=== PATIENT | female | born 1995 | race Caucasian/White ===

== ENCOUNTER 2017-11-27 16:44 | Observation (INO) | payer SELFPAY ==
[2017-11-27] MEDS ORDERED: Lactated Ringers 1,000 ML IV SCH (17:15)
== END 2017-11-27 19:10 | disposition home or self-care (01) ==
LOC: MW.OBCHECK 16:44 → MW.OB 16:55 → MW.OBCHECK 17:08 → MW.OB 17:09
PROVIDERS: ADMIT Obstetrics & Gynecology; ATTEND Obstetrics & Gynecology
DX: O21.0 Mild hyperemesis gravidarum (principal); Z3A.36 36 weeks gestation of pregnancy
CPT/HCPCS: 59025; 96360; G0378; J7120

== ENCOUNTER 2017-12-10 05:05 | Inpatient (IN) | payer BC ==
[2017-12-10] MEDS ORDERED: Butorphanol 1 MG/ML SDV IVPUSH PRN (15:02)
[2017-12-10] MEDS ORDERED: Nalbuphine 10 MG/1 ML Vial IVPUSH PRN (15:02)
[2017-12-10] MEDS ORDERED: Lidocaine 1% 50 ML MDV INJECT PRN (15:02)
[2017-12-10] MEDS ORDERED: Sodium Chloride 0.9% 2.5 ML Syringe FLUSH PRN (15:02)
[2017-12-10] MEDS ORDERED: Misoprostol 200 MCG Tab PO PRN (15:02)
[2017-12-10] MEDS ORDERED: Carboprost Tromethamine 250 MCG/1 ML Amp IM PRN (15:02)
[2017-12-10] MEDS ORDERED: Sodium Chloride 0.9% 10 ML Syringe FLUSH PRN (15:02)
[2017-12-10] MEDS ORDERED: Water For Irrigation,Sterile 1,000 ML Container IRR PRN (15:02)
[2017-12-10] MEDS ORDERED: Methylergonovine 0.2 MG/1 ML Amp IM PRN (15:02)
[2017-12-10] MEDS ORDERED: Tranexamic Acid 1,000 MG in Sodium Chloride 0.9% 100 ML IV PRN (15:02)
[2017-12-10] MEDS ORDERED: Terbutaline 1 MG/ML SDV SUBCUT PRN (15:02)
[2017-12-10] MEDS ORDERED: Lactated Ringers 1,000 ML IV SCH (15:15)
[2017-12-10] MEDS ORDERED: Ampicillin 2 GM in Sodium Chloride 0.9% 100 ML IV ONE (15:15)
[2017-12-10] MEDS ORDERED: Oxytocin/0.9 % Sodium Chloride 30 UNIT/500 ML BAG IV SCH ×2 (15:15→20:15)
--- NOTE | 2017-12-10 17:41 | PCM.LDHP ---
L&D History of Present Illness - General Date of Service: 12/10/17 Admit Problem/Dx: Patient Status Order with Admit Dx/Problem 12/10/17 15:02 Patient Status [ADT] Routine Admission Diagnosis/Problem Admission Diagnosis/Problem - planned 12/10/17 17:36 22yo EDC 12/22/2017 38 2/7, O+, R-NI, GBS pos. 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 OBGYN: Reports: Endocrine/Metabolic: Reports: Diabetes, type II - Tobacco Use Smoking Status *Q: Never Smoker Second Hand Smoke Exposure: No - Caffeine Use Caffeine Use: Reports: None - Recreational Drug Use Recreational Drug Use: No H&P Review of Systems - Review of Systems: Review Of Systems: See Below General: Reports: No Symptoms HEENT: Reports: No Symptoms Pulmonary: Reports: No Symptoms Cardiovascular: Reports: No Symptoms Gastrointestinal: Reports: No Symptoms Genitourinary: Reports: No Symptoms Musculoskeletal: Reports: No Symptoms Skin: Reports: No Symptoms Psychiatric: Reports: No Symptoms Neurological: Reports: No Symptoms Hematologic/Lymphatic: Reports: No Symptoms Immunologic: Reports: No Symptoms L&D Exam - Exam Exam: See Below - Vital Signs Weight: 56.245 kg - OB Specific Contraction Intensity: Mild Movement: Active Heart Tones: Present Heart Tones per Min: 135 Heart Rate (FHR) Variability: Moderate (6-25 bmp) Presentation: Vertex (Hand noted near head. Limited handheld u/s noted cephalic presentation) - Fairchild Score Fairchild Score Cervix Position: Midposition Fairchild Score Consistency: Soft Fairchild Score Effacement: >80% Fairchild Score Dilation: 3-4 cm Fairchild Score Infant's Station: -2 Fairchild Score Total: 9 - Exam General: Alert, Oriented, Cooperative HEENT: Hearing Intact Lungs: Normal Respiratory Effort GI/Abdominal Exam: Soft, Non-Tender Rectal Exam: Deferred Genitourinary: Normal external exam, Normal bimanual exam, Cervical fluid Back Exam: Full Range of Motion Extremities: Normal Range of Motion, Non-Tender, No Pedal Edema, Normal Capillary Refill Skin: Warm, Dry, Intact Neurological: Reflexes Equal Bilateral, Normal Gait, Normal Speech, Normal Tone Psychiatric: Alert, Normal Affect, Normal Mood - Patient Data Lab Results Last 24 hrs: Laboratory Results - last 24 hr 12/10/17 12/10/17 Range/Units 15:25 15:25 WBC 9.25 (4.0-11.0) K/uL RBC 4.40 (4.30-5.90) M/uL Hgb 12.5 (12.0-16.0) g/dL Hct 37.9 (36.0-46.0) % MCV 86.1 (80.0-98.0) fL MCH 28.4 (27.0-32.0) pg MCHC 33.0 (31.0-37.0) g/dL RDW Std Deviation 44.4 (28.0-62.0) fl RDW Coeff of Yadira 14 (11.0-15.0) % Plt Count 144 L (150-400) K/uL MPV 12.00 (7.40-12.00) fL Nucleated RBC % 0.0 /100WBC Nucleated RBCs # 0 K/uL Blood Type O POSITIVE Antibody Screen NEGATIVE Result Diagrams: 12/10/17 15:25 - Problem List (1) Supervision of normal IUP (intrauterine ) in multigravida SNOMED Code(s): 184709983, 114996852 ICD Code: Z34.80 - ENCOUNTER FOR SUPRVSN OF NORMAL , UNSP TRIMESTER Status: Acute Priority: High Current Visit: Yes Qualifiers: Trimester: third trimester Qualified Code(s): Z34.83 - Encounter for supervision of other normal , third trimester (2) SROM (spontaneous rupture of membranes) SNOMED Code(s): 507805470 ICD Code: NLK4354 - Status: Acute Priority: High Current Visit: Yes Problem List Initiated/Reviewed/Updated: Yes Orders Last 24hrs: Active Orders 24 hr Category Date Time Status Patient Status [ADT] Routine ADT 12/10/17 15:02 Active Bedrest Bathroom Privileges [RC] ASDIRECTED Care 12/10/17 15:02 Active Communication Order [RC] ASDIRECTED Care 12/10/17 15:02 Active May Shower [RC] ASDIRECTED Care 12/10/17 15:02 Active Notify Provider [RC] PRN Care 12/10/17 15:02 Active Oxygen Therapy [RC] ASDIRECTED Care 12/10/17 15:02 Active Up ad Suzanne [RC] ASDIRECTED Care 12/10/17 15:02 Active Vital Signs [RC] PER UNIT ROUTINE Care 12/10/17 15:02 Active Ampicillin 1 gm Med 12/10/17 19:30 Active Sodium Chloride 0.9% [Normal Saline] 50 ml IV Q4H Butorphanol [Stadol] Med 12/10/17 15:02 Active 1 mg IVPUSH Q1H PRN Carboprost Tromethamine [Hemabate DS] Med 12/10/17 15:02 Active 250 mcg IM ASDIRECTED PRN Lactated Ringers [Ringers, Lactated] 1,000 ml Med 12/10/17 15:15 Active IV ASDIRECTED Lidocaine 1% [Xylocaine 1%] Med 12/10/17 15:02 Active 50 ml INJECT .ONCE PRN Methylergonovine [Methergine] Med 12/10/17 15:02 Active 0.2 mg IM ASDIRECTED PRN Misoprostol [Cytotec] Med 12/10/17 15:02 Active 200 mcg PO .ONCE PRN Nalbuphine [Nubain] Med 12/10/17 15:02 Active 10 mg IVPUSH Q1H PRN Oxytocin/0.9 % Sodium Chloride [Oxytocin 30 Unit/500 ML Med 12/10/17 15:15 Active -NS] 30 unit in 500 ml IV TITRATE Sodium Chloride 0.9% [Saline Flush] Med 12/10/17 15:02 Active 10 ml FLUSH ASDIRECTED PRN Sodium Chloride 0.9% [Saline Flush] Med 12/10/17 15:02 Active 2.5 ml FLUSH ASDIRECTED PRN Terbutaline [Brethine] Med 12/10/17 15:02 Active 0.25 mg SUBCUT ASDIRECTED PRN Tranexamic Acid [Cyklokapron] 1,000 mg Med 12/10/17 15:02 Active Sodium Chloride 0.9% [Normal Saline] 100 ml IV ONETIME Water For Irrigation,Sterile [Sterile Water for Med 12/10/17 15:02 Active Irrigation] 1,000 ml IRR ASDIRECTED PRN Scalp Electrode [WOMSER] Per Unit Routine Oth 12/10/17 15:02 Ordered Peripheral IV Insertion Adult [OM.PC] Routine Oth 12/10/17 15:02 Ordered Resuscitation Status Routine Resus Stat 12/10/17 15:02 Ordered Medication Orders Butorphanol Tartrate (Stadol) 1 mg IVPUSH Q1H PRN PRN Reason: Pain Carboprost Tromethamine (Hemabate Ds) 250 mcg IM ASDIRECTED PRN PRN Reason: Post Hemorrhage Ampicillin Sodium 1 gm/ Sodium (Chloride) 50 mls @ 100 mls/hr IV Q4H VERNON Lactated Ringer's (Ringers, Lactated) 1,000 mls @ 150 mls/hr IV ASDIRECTED VERNON Last Admin: 12/10/17 15:41 Dose: 150 mls/hr Oxytocin/Sodium Chloride (Oxytocin 30 Unit/500 Ml-Ns) 30 unit in 500 mls @ 999 mls/hr IV TITRATE VERNON Tranexamic Acid 1,000 mg/ (Sodium Chloride) 110 mls @ 600 mls/hr IV ONETIME PRN PRN Reason: Bleeding Lidocaine HCl (Xylocaine 1%) 50 ml INJECT .ONCE PRN PRN Reason: Laceration repair Methylergonovine Maleate (Methergine) 0.2 mg IM ASDIRECTED PRN PRN Reason: Post Hemorrhage Misoprostol (Cytotec) 200 mcg PO .ONCE PRN PRN Reason: Post Hemorrhage Nalbuphine HCl (Nubain) 10 mg IVPUSH Q1H PRN PRN Reason: Pain (severe 7-10) Sodium Chloride (Saline Flush) 10 ml FLUSH ASDIRECTED PRN PRN Reason: Keep Vein Open Sodium Chloride (Saline Flush) 2.5 ml FLUSH ASDIRECTED PRN PRN Reason: Keep Vein Open Sterile Water (Sterile Water For Irrigation) 1,000 ml IRR ASDIRECTED PRN PRN Reason: delivery Terbutaline Sulfate (Brethine) 0.25 mg SUBCUT ASDIRECTED PRN PRN Reason: Tacysystole Assessment/Plan Comment:: Early labor A: 22yo EDC 12/22/2017 38 2, O+, R-NI, GBS pos. SROM at 0500 today P: Admit, epidural prn, Amp for GBS pos, anticipate . Dr Tucker updated on pt status
[2017-12-10] MEDS: Ampicillin 1 GM in Sodium Chloride 0.9% 50 ML IV SCH ×2 (19:49→23:29)
[2017-12-10] MEDS ORDERED: Ropivacaine 0.2% 2 MG/ML 20 ML SDV ONE (23:53)
--- NOTE | 2017-12-11 00:24 | PCM.PREANE ---
Preanesthetic Assessment - Anesthesia/Transfusion/Family Hx Anesthesia History: No Prior Anesthesia Transfusion History: No Prior Transfusion(s) - Review of Systems Other: Reports: None - Physical Assessment Height: 5 ft 1 in Weight: 56.245 kg ASA Class: 2 Airway Class: Mallampati = 1 Dentition: Reports: Normal Dentition Thyro-Mental Finger Breadths: 3 Mouth Opening Finger Breadths: 3 ROM/Head Extension: Full - Lab Values: Laboratory Last Values WBC 9.25 K/uL (4.0-11.0) 12/10/17 15:25 RBC 4.40 M/uL (4.30-5.90) 12/10/17 15:25 Hgb 12.5 g/dL (12.0-16.0) 12/10/17 15:25 Hct 37.9 % (36.0-46.0) 12/10/17 15:25 MCV 86.1 fL (80.0-98.0) 12/10/17 15:25 MCH 28.4 pg (27.0-32.0) 12/10/17 15:25 MCHC 33.0 g/dL (31.0-37.0) 12/10/17 15:25 RDW Std Deviation 44.4 fl (28.0-62.0) 12/10/17 15:25 RDW Coeff of Yadira 14 % (11.0-15.0) 12/10/17 15:25 Plt Count 144 K/uL (150-400) L 12/10/17 15: MPV 12.00 fL (7.40-12.00) 12/10/17 15:25 Nucleated RBC % 0.0 /100WBC 12/10/17 15:25 Nucleated RBCs # 0 K/uL 12/10/17 15:25 Blood Type O POSITIVE 12/10/17 15:25 Antibody Screen NEGATIVE 12/10/17 15:25 - Allergies Allergies/Adverse Reactions: Allergies Allergy/AdvReac Type Severity Reaction Status Date / Time No Known Allergies Allergy Verified 11/27/17 17:07 - Blood Blood Available: Yes Product(s) Available: PRBC - Acknowledgements Anesthesia Type Planned: Epidural Pt an Appropriate Candidate for the Planned Anesthesia: Yes Alternatives and Risks of Anesthesia Discussed w Pt/Guardian: Yes Pt/Guardian Understands and Agrees with Anesthesia Plan: Yes PreAnesthesia Questionnaire Gastrointestinal History: Reports: GERD 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: Neurological History: Reports: Migraines - Infectious Disease History Infectious Disease History: Reports: Chicken Pox - SUBSTANCE USE Smoking Status *Q: Never Smoker Tobacco Use Within Last Twelve Months: No Second Hand Smoke Exposure: No Recreational Drug Use History: No - CURRENT (IN HOUSE) MEDS Current Meds: Current Medications Butorphanol Tartrate (Stadol) 1 mg IVPUSH Q1H PRN PRN Reason: Pain Carboprost Tromethamine (Hemabate Ds) 250 mcg IM ASDIRECTED PRN PRN Reason: Post Hemorrhage Ampicillin Sodium 1 gm/ Sodium (Chloride) 50 mls @ 100 mls/hr IV Q4H VERNON Last Admin: 12/10/17 23:29 Dose: 100 mls/hr Lactated Ringer's (Ringers, Lactated) 1,000 mls @ 150 mls/hr IV ASDIRECTED VERNON Last Admin: 12/10/17 15:41 Dose: 150 mls/hr Oxytocin/Sodium Chloride (Oxytocin 30 Unit/500 Ml-Ns) 30 unit in 500 mls @ 999 mls/hr IV TITRATE VERNON Tranexamic Acid 1,000 mg/ (Sodium Chloride) 110 mls @ 600 mls/hr IV ONETIME PRN PRN Reason: Bleeding Oxytocin/Sodium Chloride (Oxytocin 30 Unit/500 Ml-Ns) 30 unit in 500 mls @ 2 mls/hr IV TITRATE VERNON; 2 MUNITS/MIN PRN Reason: Protocol Lidocaine HCl (Xylocaine 1%) 50 ml INJECT .ONCE PRN PRN Reason: Laceration repair Methylergonovine Maleate (Methergine) 0.2 mg IM ASDIRECTED PRN PRN Reason: Post Hemorrhage Misoprostol (Cytotec) 200 mcg PO .ONCE PRN PRN Reason: Post Hemorrhage Nalbuphine HCl (Nubain) 10 mg IVPUSH Q1H PRN PRN Reason: Pain (severe 7-10) Sodium Chloride (Saline Flush) 10 ml FLUSH ASDIRECTED PRN PRN Reason: Keep Vein Open Sodium Chloride (Saline Flush) 2.5 ml FLUSH ASDIRECTED PRN PRN Reason: Keep Vein Open Sterile Water (Sterile Water For Irrigation) 1,000 ml IRR ASDIRECTED PRN PRN Reason: delivery Terbutaline Sulfate (Brethine) 0.25 mg SUBCUT ASDIRECTED PRN PRN Reason: Tacysystole Discontinued Medications Ampicillin Sodium 2 gm/ Sodium (Chloride) 100 mls @ 200 mls/hr IV ONETIME ONE Stop: 12/10/17 15:44 Last Admin: 12/10/17 15:43 Dose: 200 mls/hr Fentanyl/Bupivacaine HCl (Qwrastsz-Kingi-Qf 2 Mcg/Ml-0.125%) Confirm Administered Dose 100 mls @ as directed EP .STK-MED ONE Stop: 12/10/17 23:54 Ropivacaine (Naropin 0.2%) Confirm Administered Dose 20 ml .ROUTE .STK-MED ONE Stop: 12/10/17 23:54
[2017-12-11] MEDS: Ampicillin 1 GM in Sodium Chloride 0.9% 50 ML IV SCH (03:29)
[2017-12-11] MEDS ORDERED: Bisacodyl 10 MG Supp RECTAL PRN (05:21)
[2017-12-11] MEDS ORDERED: oxyCODONE 5 MG Tab PO PRN (05:21)
[2017-12-11] MEDS ORDERED: Ibuprofen 400 MG Tab PO PRN (05:21)
[2017-12-11] MEDS ORDERED: Acetaminophen 500 MG Tab PO PRN ×2 (05:21)
[2017-12-11] MEDS ORDERED: Ibuprofen 800 MG Tab PO PRN (05:21)
[2017-12-11] MEDS ORDERED: Docusate Sodium 100 MG Cap PO PRN (05:21)
[2017-12-11] MEDS ORDERED: Lanolin 100% Cream 7 GM Tube TOP PRN (05:21)
--- NOTE | 2017-12-11 05:29 | PCM.DEL ---
L & D Note - General Info Date of Service: 12/11/17 Mother's Due Date: 12/22/17 - Delivery Note Labor: Spontaneous, Augmented by Oxytocin Delivery Outcome: Livebirth Infant Delivery Method: Spontaneous Vaginal Delivery-Single Infant Delivery Mode: Spontaneous Presentation: Vertex (Hand noted near head. Limited handheld u/s noted cephalic presentation) Nuchal Cord: Present Anesthesia Type: Epidural Amniotic Fluid Description: Clear Episiotomy Type: None Laceration: None Placenta: Intact, Spontaneous Cord: 3 Vessels Estimated Blood Loss: 150 Resuscitation Needed: No Score 1 min: 8 Score 5 min: 8 Second Stage Interventions: Reports: Pushing Effectively, Pushing, Pulls Own Legs Back Delivery Comments (Free Text/Narrative):: of viable male over intact perineum. Head delivered and nuchal x1 reduced over head. Shoulders and body followed easily. Infant to mothers abdomen with RN at for evaluation. Spont cry. Delayed cord clamping. Pitocin to IVF. Cord clamped and cut by FOB. Cord blood collected. Placenta delivered grossly intact. Inspection noted intact perineum. APGARS 8/8, Wt: 7lb 2oz, EBL 150cc. Mother and baby left in stable condition for recovery bonding well. Induction Criteria - Augmentation Estimated Pelvis: Reports: Adequate Weight Estimated:: Reports: AGA Reassuring Monitoring Strip: Yes Absence of Tachy Systole: Yes - General Info Date of Service: 12/11/17 Admission Dx/Problem (Free Text): Patient Status Order with Admit Dx/Problem 12/10/17 15:02 Patient Status [ADT] Routine Admission Diagnosis/Problem Admission Diagnosis/Problem - planned 12/10/17 17:36 22yo EDC 12/22/2017 38 2/7, O+, R-NI, GBS pos. SROM at 0500 today Functional Status: Reports: Pain Controlled - Review of Systems General: Reports: No Symptoms HEENT: Reports: No Symptoms Pulmonary: Reports: No Symptoms Cardiovascular: Reports: No Symptoms Gastrointestinal: Reports: No Symptoms Genitourinary: Reports: No Symptoms Musculoskeletal: Reports: No Symptoms Skin: Reports: No Symptoms Neurological: Reports: No Symptoms Psychiatric: Reports: No Symptoms - Patient Data Weight - Most Recent: 56.245 kg Lab Results Last 24 Hours: Laboratory Results - last 24 hr 12/10/17 12/10/17 Range/Units 15:25 15:25 WBC 9.25 (4.0-11.0) K/uL RBC 4.40 (4.30-5.90) M/uL Hgb 12.5 (12.0-16.0) g/dL Hct 37.9 (36.0-46.0) % MCV 86.1 (80.0-98.0) fL MCH 28.4 (27.0-32.0) pg MCHC 33.0 (31.0-37.0) g/dL RDW Std Deviation 44.4 (28.0-62.0) fl RDW Coeff of Yadira 14 (11.0-15.0) % Plt Count 144 L (150-400) K/uL MPV 12.00 (7.40-12.00) fL Nucleated RBC % 0.0 /100WBC Nucleated RBCs # 0 K/uL Blood Type O POSITIVE Antibody Screen NEGATIVE Med Orders - Current: Current Medications Acetaminophen (Tylenol Extra Strength) 500 mg PO Q4H PRN PRN Reason: Pain Acetaminophen (Tylenol Extra Strength) 1,000 mg PO Q4H PRN PRN Reason: Pain Benzocaine/Menthol (Dermoplast Pain Relief 20%-0.5% [place]) 78 gm TOP ASDIRECTED PRN PRN Reason: Perineal Comfort Measure Bisacodyl (Dulcolax) 10 mg RECTAL .ONCE PRN PRN Reason: Constipation Docusate Sodium (Colace) 100 mg PO BID PRN PRN Reason: Constipation Emollient Ointment (Lansinoh Hpa) 0 gm TOP ASDIRECTED PRN PRN Reason: Sore Nipples Ibuprofen (Motrin) 400 mg PO Q4H PRN PRN Reason: Pain Ibuprofen (Motrin) 800 mg PO Q6H PRN PRN Reason: Pain Oxycodone HCl (Oxycodone) 5 mg PO Q2H PRN PRN Reason: Pain Witch Nettie (Tucks) 1 pad TOP ASDIRECTED PRN PRN Reason: comfort care Discontinued Medications Butorphanol Tartrate (Stadol) 1 mg IVPUSH Q1H PRN PRN Reason: Pain Carboprost Tromethamine (Hemabate Ds) 250 mcg IM ASDIRECTED PRN PRN Reason: Post Hemorrhage Ampicillin Sodium 2 gm/ Sodium (Chloride) 100 mls @ 200 mls/hr IV ONETIME ONE Stop: 12/10/17 15:44 Last Admin: 12/10/17 15:43 Dose: 200 mls/hr Ampicillin Sodium 1 gm/ Sodium (Chloride) 50 mls @ 100 mls/hr IV Q4H EVRNON Last Admin: 12/11/17 03:29 Dose: 100 mls/hr Lactated Ringer's (Ringers, Lactated) 1,000 mls @ 150 mls/hr IV ASDIRECTED VERNON Last Admin: 12/10/17 15:41 Dose: 150 mls/hr Oxytocin/Sodium Chloride (Oxytocin 30 Unit/500 Ml-Ns) 30 unit in 500 mls @ 999 mls/hr IV TITRATE VERNON Tranexamic Acid 1,000 mg/ (Sodium Chloride) 110 mls @ 600 mls/hr IV ONETIME PRN PRN Reason: Bleeding Oxytocin/Sodium Chloride (Oxytocin 30 Unit/500 Ml-Ns) 30 unit in 500 mls @ 2 mls/hr IV TITRATE VERNON; 2 MUNITS/MIN PRN Reason: Protocol Fentanyl/Bupivacaine HCl (Whmoyhif-Vttkc-Te 2 Mcg/Ml-0.125%) Confirm Administered Dose 100 mls @ as directed EP .STK-MED ONE Stop: 12/10/17 23:54 Lidocaine HCl (Xylocaine 1%) 50 ml INJECT .ONCE PRN PRN Reason: Laceration repair Methylergonovine Maleate (Methergine) 0.2 mg IM ASDIRECTED PRN PRN Reason: Post Hemorrhage Misoprostol (Cytotec) 200 mcg PO .ONCE PRN PRN Reason: Post Hemorrhage Nalbuphine HCl (Nubain) 10 mg IVPUSH Q1H PRN PRN Reason: Pain (severe 7-10) Ropivacaine (Naropin 0.2%) Confirm Administered Dose 20 ml .ROUTE .STK-MED ONE Stop: 12/10/17 23:54 Sodium Chloride (Saline Flush) 10 ml FLUSH ASDIRECTED PRN PRN Reason: Keep Vein Open Sodium Chloride (Saline Flush) 2.5 ml FLUSH ASDIRECTED PRN PRN Reason: Keep Vein Open Sterile Water (Sterile Water For Irrigation) 1,000 ml IRR ASDIRECTED PRN PRN Reason: delivery Terbutaline Sulfate (Brethine) 0.25 mg SUBCUT ASDIRECTED PRN PRN Reason: Tacysystole - Exam General: Alert, Oriented, Cooperative, No Acute Distress Lungs: Normal Respiratory Effort GI/Abdominal Exam: Soft, Non-Tender (Female) Exam: Normal External Exam, Normal Bimanual Exam, Vaginal Bleeding Back Exam: Full Range of Motion Extremities: Normal Range of Motion, Non-Tender, No Pedal Edema, Normal Capillary Refill Skin: Warm, Dry, Intact Wound/Incisions: Healing Well Neurological: No New Focal Deficit, Normal Speech, Normal Tone Psy/Mental Status: Alert, Normal Affect, Normal Mood - Problem List & Annotations (1) Supervision of normal IUP (intrauterine ) in multigravida SNOMED Code(s): 014167766, 189086988 Code(s): Z34.80 - ENCOUNTER FOR SUPRVSN OF NORMAL , UNSP TRIMESTER Status: Acute Priority: High Current Visit: Yes Qualifiers: Trimester: third trimester Qualified Code(s): Z34.83 - Encounter for supervision of other normal , third trimester (2) SROM (spontaneous rupture of membranes) SNOMED Code(s): 772001658 Code(s): PDO4993 - Status: Acute Priority: High Current Visit: Yes (3) (normal spontaneous vaginal delivery) SNOMED Code(s): 03210910 Code(s): O80 - ENCOUNTER FOR FULL-TERM UNCOMPLICATED DELIVERY Status: Acute Priority: High Current Visit: Yes - Problem List Review Problem List Initiated/Reviewed/Updated: Yes - My Orders Last 24 Hours: My Active Orders 12/10/17 15:02 Bedrest Bathroom Privileges [RC] ASDIRECTED Communication Order [RC] ASDIRECTED May Shower [RC] ASDIRECTED Notify Provider [RC] PRN Oxygen Therapy [RC] ASDIRECTED Up ad Suzanne [RC] ASDIRECTED Vital Signs [RC] PER UNIT ROUTINE 12/11/17 05:21 May Shower [RC] ASDIRECTED Up ad Suzanne [RC] ASDIRECTED Vital Signs [RC] PER UNIT ROUTINE Acetaminophen [Tylenol Extra Strength] 1,000 mg PO Q4H PRN Acetaminophen [Tylenol Extra Strength] 500 mg PO Q4H PRN Benzocaine/Menthol [Dermoplast Pain Relief 20%-0.5% [place]] 78 gm TOP ASDIRECTED PRN Bisacodyl [Dulcolax] 10 mg RECTAL .ONCE PRN Docusate Sodium [Colace] 100 mg PO BID PRN Ibuprofen [Motrin] 400 mg PO Q4H PRN Ibuprofen [Motrin] 800 mg PO Q6H PRN Lanolin [Lansinoh HPA] See Dose Instructions TOP ASDIRECTED PRN Witch Nettie [Tucks] 1 pad TOP ASDIRECTED PRN oxyCODONE 5 mg PO Q2H PRN Assess Lochia [WOMSER] Per Unit Routine Assess Uterine Involution [WOMSER] Per Unit Routine Peripheral IV Discontinue [OM.PC] Routine Resuscitation Status Routine 12/11/17 05:22 Patient Status [ADT] Routine 12/11/17 Breakfast Regular Diet [DIET] - Plan Plan:: Early labor A: 22yo EDC 12/22/2017 38 2/7, O+, R-NI, GBS pos. SROM at 0500 today P: Admit, epidural prn, Amp for GBS pos, anticipate . Dr Tucker updated on pt status Delivery A: of viable male, APGARS 8/8, WT: 7lb 2oz, EBL 150cc, Intact, Mother and baby stable bonding well, P: Routing pp plan of care
[2017-12-11] MEDS ORDERED: Measles, Mumps & Rubella Vaccine 0.5 ML SDV SUBCUT ONE (05:32)
--- NOTE | 2017-12-11 07:59 | PCM48HPAN ---
Post Anesthesia Note - EVALUATION WITHIN 48HRS OF ANESTHETIC Vital Signs in Normal Range: Yes Patient Participated in Evaluation: Yes Respiratory Function Stable: Yes Airway Patent: Yes Cardiovascular Function Stable: Yes Hydration Status Stable: Yes Pain Control Satisfactory: Yes Nausea and Vomiting Control Satisfactory: Yes Mental Status Recovered: Yes
[2017-12-11] MEDS: Benzocaine/Menthol 20%-0.5% Spray 78 GM Cannister TOP PRN ×2 (11:50→22:37)
[2017-12-11] MEDS: Witch Hazel Medicated Pads 40/Jar TOP PRN ×2 (11:50→22:37)
--- NOTE | 2017-12-12 08:46 | PCM.DCSUM1 ---
Discharge Summary - Hospital Course Free Text/Narrative:: Discharge home with . Follow up 6 weeks for post or sooner if needed. - Discharge Data Discharge Date: 12/12/17 Discharge Disposition: Home, Self-Care 01 Condition: Good - Discharge Diagnosis/Problem(s) (1) Supervision of normal IUP (intrauterine ) in multigravida SNOMED Code(s): 198021996, 504951292 ICD Code: Z34.80 - ENCOUNTER FOR SUPRVSN OF NORMAL , UNSP TRIMESTER Status: Acute Priority: High Current Visit: Yes Qualifiers: Trimester: third trimester Qualified Code(s): Z34.83 - Encounter for supervision of other normal , third trimester (2) SROM (spontaneous rupture of membranes) SNOMED Code(s): 666819183 ICD Code: XYX7379 - Status: Acute Priority: High Current Visit: Yes (3) (normal spontaneous vaginal delivery) SNOMED Code(s): 04168651 ICD Code: O80 - ENCOUNTER FOR FULL-TERM UNCOMPLICATED DELIVERY Status: Acute Priority: High Current Visit: Yes - Patient Instructions Diet: Usual Diet as Tolerated Activity: As Tolerated, No Strenuous Activities, Rest and Relax Today Driving: May Drive Today Showering/Bathing: May Shower Notify Provider of: Fever, Increased Pain, Nausea and/or Vomiting - Discharge Plan Referrals: [facility] [Outside] Ignacia Mistry CNM [Primary Care Provider] - 01/22/18 10:45 am - General Info Date of Service: 12/12/17 Admission Dx/Problem (Free Text: Patient Status Order with Admit Dx/Problem 12/10/17 15:02 Patient Status [ADT] Routine Admission Diagnosis/Problem Admission Diagnosis/Problem - planned 12/10/17 17:36 22yo EDC 12/22/2017 38 2/7, O+, R-NI, GBS pos. SROM at 0500 today Functional Status: Reports: Pain Controlled, Tolerating Diet, Ambulating, Urinating - Review of Systems General: Reports: No Symptoms HEENT: Reports: No Symptoms Pulmonary: Reports: No Symptoms Cardiovascular: Reports: No Symptoms Gastrointestinal: Reports: No Symptoms Genitourinary: Reports: No Symptoms Musculoskeletal: Reports: No Symptoms Skin: Reports: No Symptoms Neurological: Reports: No Symptoms Psychiatric: Reports: No Symptoms - Patient Data Vitals - Most Recent: Last Vital Signs Temp 36.7 C 12/11/17 20:14 Pulse 85 12/11/17 20:14 Resp 18 12/11/17 20:14 BP 134/90 12/11/17 20:14 Pulse Ox 99 12/11/17 20:14 Weight - Most Recent: 56.245 kg Med Orders - Current: Current Medications Acetaminophen (Tylenol Extra Strength) 500 mg PO Q4H PRN PRN Reason: Pain Acetaminophen (Tylenol Extra Strength) 1,000 mg PO Q4H PRN PRN Reason: Pain Benzocaine/Menthol (Dermoplast Pain Relief 20%-0.5% [facility]) 78 gm TOP ASDIRECTED PRN PRN Reason: Perineal Comfort Measure Last Admin: 12/11/17 22:37 Dose: 1 canister Bisacodyl (Dulcolax) 10 mg RECTAL .ONCE PRN PRN Reason: Constipation Docusate Sodium (Colace) 100 mg PO BID PRN PRN Reason: Constipation Emollient Ointment (Lansinoh Hpa) 0 gm TOP ASDIRECTED PRN PRN Reason: Sore Nipples Last Admin: 12/11/17 11:50 Dose: 1 tube Ibuprofen (Motrin) 400 mg PO Q4H PRN PRN Reason: Pain Ibuprofen (Motrin) 800 mg PO Q6H PRN PRN Reason: Pain Last Admin: 12/11/17 18:43 Dose: 800 mg Oxycodone HCl (Oxycodone) 5 mg PO Q2H PRN PRN Reason: Pain Witch Nettie (Tucks) 1 pad TOP ASDIRECTED PRN PRN Reason: comfort care Last Admin: 12/11/17 22:37 Dose: 1 tub Discontinued Medications Butorphanol Tartrate (Stadol) 1 mg IVPUSH Q1H PRN PRN Reason: Pain Carboprost Tromethamine (Hemabate Ds) 250 mcg IM ASDIRECTED PRN PRN Reason: Post Hemorrhage Ampicillin Sodium 2 gm/ Sodium (Chloride) 100 mls @ 200 mls/hr IV ONETIME ONE Stop: 12/10/17 15:44 Last Admin: 12/10/17 15:43 Dose: 200 mls/hr Ampicillin Sodium 1 gm/ Sodium (Chloride) 50 mls @ 100 mls/hr IV Q4H VERNON Last Admin: 12/11/17 03:29 Dose: 100 mls/hr Lactated Ringer's (Ringers, Lactated) 1,000 mls @ 150 mls/hr IV ASDIRECTED VERNON Last Admin: 12/10/17 15:41 Dose: 150 mls/hr Oxytocin/Sodium Chloride (Oxytocin 30 Unit/500 Ml-Ns) 30 unit in 500 mls @ 999 mls/hr IV TITRATE VERNON Tranexamic Acid 1,000 mg/ (Sodium Chloride) 110 mls @ 600 mls/hr IV ONETIME PRN PRN Reason: Bleeding Oxytocin/Sodium Chloride (Oxytocin 30 Unit/500 Ml-Ns) 30 unit in 500 mls @ 2 mls/hr IV TITRATE VERNON; 2 MUNITS/MIN PRN Reason: Protocol Last Infusion: 12/11/17 05:35 Dose: Infused Fentanyl/Bupivacaine HCl (Tivoceaz-Bizvd-Kg 2 Mcg/Ml-0.125%) Confirm Administered Dose 100 mls @ as directed EP .STK-MED ONE Stop: 12/10/17 23:54 Last Admin: 12/11/17 09:28 Dose: Not Given Lidocaine HCl (Xylocaine 1%) 50 ml INJECT .ONCE PRN PRN Reason: Laceration repair Measles/Mumps/Rubella Vaccine Live (M-M-R Ii Vaccine) 0.5 ml SUBCUT .ONCE ONE Stop: 12/11/17 05:33 Last Admin: 12/11/17 20:25 Dose: Not Given Methylergonovine Maleate (Methergine) 0.2 mg IM ASDIRECTED PRN PRN Reason: Post Hemorrhage Misoprostol (Cytotec) 200 mcg PO .ONCE PRN PRN Reason: Post Hemorrhage Nalbuphine HCl (Nubain) 10 mg IVPUSH Q1H PRN PRN Reason: Pain (severe 7-10) Ropivacaine (Naropin 0.2%) Confirm Administered Dose 20 ml .ROUTE .STK-MED ONE Stop: 12/10/17 23:54 Last Admin: 12/11/17 09:29 Dose: Not Given Sodium Chloride (Saline Flush) 10 ml FLUSH ASDIRECTED PRN PRN Reason: Keep Vein Open Sodium Chloride (Saline Flush) 2.5 ml FLUSH ASDIRECTED PRN PRN Reason: Keep Vein Open Sterile Water (Sterile Water For Irrigation) 1,000 ml IRR ASDIRECTED PRN PRN Reason: delivery Terbutaline Sulfate (Brethine) 0.25 mg SUBCUT ASDIRECTED PRN PRN Reason: Tacysystole - Exam General: Reports: Alert, Oriented, Cooperative, No Acute Distress Lungs: Reports: Normal Respiratory Effort GI/Abdominal Exam: Soft, Non-Tender (Female) Exam: Vaginal Bleeding Rectal (Female) Exam: Deferred Back Exam: Reports: Full Range of Motion Extremities: Normal Range of Motion, Non-Tender, No Pedal Edema, Normal Capillary Refill Skin: Reports: Warm, Dry, Intact Wound/Incisions: Reports: Healing Well Neurological: Reports: No New Focal Deficit, Normal Speech, Normal Tone Psy/Mental Status: Reports: Alert, Normal Affect, Normal Mood *Q Meaningful Use (DIS) - VTE *Q VTE Criteria *Q: - Stroke *Q Stroke Criteria *Q: - AMI *Q AMI Criteria *Q:
== END 2017-12-12 10:15 | disposition home or self-care (01) | DRG 560 ==
LOC: MW.OB 05:05 → UNDOADMOB 14:57 → MW.OB 14:57 → OBSVTOIN 12-11 05:05 → INTOOBSV 12-11 05:05 → MW.OB 12-11 09:17 → UNDODISIN 12-12 10:15
PROVIDERS: ADMIT Obstetrics & Gynecology; ATTEND Advanced Practice Midwife
PROC: 10E0XZZ Delivery of Products of Conception, External Approach (ICD-10-PCS; principal; 2017-12-11)
DX: O42.02 Full-term premature rupture of membranes, onset of labor within 24 hours of rupture (principal); O69.1XX0 Labor and delivery complicated by cord around neck, with compression, not applicable or unspecified; Z3A.38 38 weeks gestation of pregnancy; Z37.0 Single live birth
CPT/HCPCS: 01967-QZ; 36415; 51702; 59025; 59409; 85027; 86850; 86900; 86901; A9270-GY; J0290; J2590; J7030; J7050; J7120

== ENCOUNTER 2018-03-27 07:32 | Day surgery (SDC) | payer SELFPAY ==
[2018-03-27] MEDS ORDERED: Sugammadex Sodium 200 MG/2 ML VIAL ONE (07:57)
[2018-03-27] MEDS ORDERED: Octyl 2-Cyanoacrylate 1 Tube ONE (08:12)
--- NOTE | 2018-03-27 08:43 | PCM.PREANE ---
Preanesthetic Assessment - Anesthesia/Transfusion/Family Hx Anesthesia History: No Prior Anesthesia Family History of Anesthesia Reaction: No Transfusion History: No Prior Transfusion(s) Intubation History: Unknown - Review of Systems General: No Symptoms Pulmonary: No Symptoms Cardiovascular: No Symptoms Gastrointestinal: No Symptoms Neurological: No Symptoms Other: Reports: None - Physical Assessment O2 Sat by Pulse Oximetry: 97 Respiratory Rate: 16 Vital Signs: Last Vital Signs Temp 37.6 C 03/27/18 07:50 Pulse 60 03/27/18 07:50 Resp 16 03/27/18 07:50 BP 142/80 H 03/27/18 07:50 Pulse Ox 97 03/27/18 07:50 Height: 1.57 m Weight: 49.895 kg ASA Class: 1 Mental Status: Alert & Oriented x3 Airway Class: Mallampati = 1 Dentition: Reports: Normal Dentition Thyro-Mental Finger Breadths: 3 Mouth Opening Finger Breadths: 3 ROM/Head Extension: Full Lungs: Clear to Auscultation, Normal Respiratory Effort Cardiovascular: Regular Rate, Regular Rhythm - Lab Values: Laboratory Last Values WBC 6.14 K/uL (4.0-11.0) 03/26/18 15:08 RBC 4.79 M/uL (4.30-5.90) 03/26/18 15:08 Hgb 14.0 g/dL (12.0-16.0) 03/26/18 15:08 Hct 40.8 % (36.0-46.0) 03/26/18 15:08 MCV 85.2 fL (80.0-98.0) 03/26/18 15:08 MCH 29.2 pg (27.0-32.0) 03/26/18 15:08 MCHC 34.3 g/dL (31.0-37.0) 03/26/18 15:08 RDW Std Deviation 41.0 fl (28.0-62.0) 03/26/18 15:08 RDW Coeff of Yadira 13 % (11.0-15.0) 03/26/18 15:08 Plt Count 237 K/uL (150-400) 03/26/18 15:08 MPV 10.10 fL (7.40-12.00) 03/26/18 15:08 Nucleated RBC % 0.0 /100WBC 03/26/18 15:08 Nucleated RBCs # 0 K/uL 03/26/18 15:08 Urine HCG, Qual NEGATIVE (NEGATIVE) 03/26/18 14:46 Blood Type O POSITIVE 03/26/18 15:08 Antibody Screen NEGATIVE 03/26/18 15:08 - Allergies Allergies/Adverse Reactions: Allergies Allergy/AdvReac Type Severity Reaction Status Date / Time No Known Allergies Allergy Verified 03/25/18 14:36 - Blood Blood Available: No - Anesthesia Plan Pre-Op Medication Ordered: None - Acknowledgements Anesthesia Type Planned: General Anesthesia Pt an Appropriate Candidate for the Planned Anesthesia: Yes Alternatives and Risks of Anesthesia Discussed w Pt/Guardian: Yes Pt/Guardian Understands and Agrees with Anesthesia Plan: Yes PreAnesthesia Questionnaire Gastrointestinal History: Reports: GERD 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 [No Known Home Meds] 03/25/18 [History] - CURRENT (IN HOUSE) MEDS Current Meds: Current Medications Lactated Ringer's (Ringers, Lactated) 1,000 mls @ 125 mls/hr IV ASDIRECTED VERNON Discontinued Medications Octyl Cyanoacrylate (Dermabond Advance) Confirm Administered Dose 1 applic .ROUTE .STK-MED ONE Stop: 03/27/18 08:13
[2018-03-27] MEDS ORDERED: Lactated Ringers 1,000 ML IV SCH (08:45)
[2018-03-27] MEDS ORDERED: Midazolam 1 MG/ML 2 ML SDV ONE (09:50)
[2018-03-27] MEDS ORDERED: fentaNYL 100 MCG/2 ML SDV ONE (09:50)
[2018-03-27] MEDS ORDERED: Propofol 200 MG/20 ML SDV ONE (09:52)
[2018-03-27] MEDS ORDERED: Dexamethasone 4 MG/ML 5 ML MDV ONE (10:31)
[2018-03-27] MEDS ORDERED: Rocuronium 10 MG/ML 10 ML Syringe ONE (10:31)
[2018-03-27] MEDS ORDERED: Ondansetron 4 MG/2 ML SDV ONE (10:31)
[2018-03-27] MEDS ORDERED: Ketorolac 30 MG/ML SDV ONE (10:31)
[2018-03-27] MEDS ORDERED: Ketorolac 30 MG/ML SDV IVPUSH PRN (11:02)
[2018-03-27] MEDS ORDERED: Promethazine 25 MG/ML SDV IM PRN (11:02)
[2018-03-27] MEDS ORDERED: Ketorolac 30 MG/ML SDV IVPUSH ONE (11:02)
[2018-03-27] MEDS ORDERED: Morphine 4 MG/ML Syringe IVPUSH PRN (11:02)
[2018-03-27] MEDS ORDERED: Ondansetron 4 MG/2 ML SDV IVPUSH PRN (11:02)
[2018-03-27] MEDS ORDERED: Acetaminophen/oxyCODONE 325-5 MG Tab PO PRN ×2 (11:02)
--- NOTE | 2018-03-27 11:06 | PCM.OPNOTE ---
- General Post-Op/Procedure Note Date of Surgery/Procedure: 03/27/18 Findings: IUD Pre Op Diagnosis: Lost IUD Post-Op Diagnosis: Same Anesthesia Technique: General ET Tube Primary Surgeon: Modesto Tucker EBL in mLs: 25 Complications: None Condition: Good
--- NOTE | 2018-03-27 11:07 | PCM.DCSUM1 ---
Discharge Summary - Discharge Data Discharge Date: 03/27/18 Discharge Disposition: Home, Self-Care 01 Condition: Good - Patient Instructions Diet: Usual Diet as Tolerated Activity: As Tolerated Driving: Do Not Drive Showering/Bathing: February Shower - Discharge Plan Home Medications: Home Meds . [No Known Home Meds] 03/25/18 [History] - General Info Date of Service: 03/27/18 Functional Status: Reports: Pain Controlled - Review of Systems General: Reports: No Symptoms HEENT: Reports: No Symptoms Pulmonary: Reports: No Symptoms Cardiovascular: Reports: No Symptoms Gastrointestinal: Reports: No Symptoms Genitourinary: Reports: No Symptoms Musculoskeletal: Reports: No Symptoms Skin: Reports: No Symptoms Neurological: Reports: No Symptoms Psychiatric: Reports: No Symptoms - Patient Data Vitals - Most Recent: Last Vital Signs Temp 37.6 C 03/27/18 07:50 Pulse 60 03/27/18 07:50 Resp 16 03/27/18 08:42 BP 142/80 H 03/27/18 07:50 Pulse Ox 97 03/27/18 08:42 Weight - Most Recent: 49.895 kg Lab Results - Last 24 hrs: Laboratory Results - last 24 hr 03/26/18 03/26/18 03/26/18 Range/Units 14:46 15:08 15:08 WBC 6.14 (4.0-11.0) K/uL RBC 4.79 (4.30-5.90) M/uL Hgb 14.0 (12.0-16.0) g/dL Hct 40.8 (36.0-46.0) % MCV 85.2 (80.0-98.0) fL MCH 29.2 (27.0-32.0) pg MCHC 34.3 (31.0-37.0) g/dL RDW Std Deviation 41.0 (28.0-62.0) fl RDW Coeff of Yadira 13 (11.0-15.0) % Plt Count 237 (150-400) K/uL MPV 10.10 (7.40-12.00) fL Nucleated RBC % 0.0 /100WBC Nucleated RBCs # 0 K/uL Urine HCG, Qual NEGATIVE (NEGATIVE) Blood Type O POSITIVE Antibody Screen NEGATIVE Med Orders - Current: Current Medications Lactated Ringer's (Ringers, Lactated) 1,000 mls @ 125 mls/hr IV ASDIRECTED VERNON Last Admin: 03/27/18 08:43 Dose: 125 mls/hr Ketorolac Tromethamine (Toradol) 30 mg IVPUSH ONETIME ONE Stop: 03/27/18 11:03 Ketorolac Tromethamine (Toradol) 30 mg IVPUSH Q6H PRN PRN Reason: Pain (severe 7-10) Stop: 04/01/18 11:02 Morphine Sulfate (Morphine) 4 mg IVPUSH Q2H PRN PRN Reason: Pain (severe 7-10) Ondansetron HCl (Zofran) 4 mg IVPUSH Q6H PRN PRN Reason: Nausea/Vomiting Oxycodone/Acetaminophen (Percocet 325-5 Mg) 1 tab PO Q4H PRN PRN Reason: Pain (moderate 4-6) Oxycodone/Acetaminophen (Percocet 325-5 Mg) 2 tab PO Q4H PRN PRN Reason: Pain (moderate 4-6) Promethazine HCl (Phenergan) 25 mg IM Q6H PRN PRN Reason: Nausea/Vomiting Discontinued Medications Dexamethasone (Dexamethasone) Confirm Administered Dose 20 mg .ROUTE .STK-MED ONE Stop: 03/27/18 10:32 Fentanyl (Sublimaze) Confirm Administered Dose 100 mcg .ROUTE .STK-MED ONE Stop: 03/27/18 09:51 Lidocaine HCl (Xylocaine-Mpf 1%) Confirm Administered Dose 5 mls @ as directed .ROUTE .STK-MED ONE Stop: 03/27/18 10:32 Ketorolac Tromethamine (Toradol) Confirm Administered Dose 30 mg .ROUTE .STK- MED ONE Stop: 03/27/18 10:32 Midazolam HCl (Versed 1 Mg/Ml) Confirm Administered Dose 2 mg .ROUTE .STK-MED ONE Stop: 03/27/18 09:51 Octyl Cyanoacrylate (Dermabond Advance) Confirm Administered Dose 1 applic .ROUTE .STK-MED ONE Stop: 03/27/18 08:13 Ondansetron HCl (Zofran) Confirm Administered Dose 4 mg .ROUTE .STK-MED ONE Stop: 03/27/18 10:32 Propofol (Diprivan 20 Ml) Confirm Administered Dose 200 mg .ROUTE .STK-MED ONE Stop: 03/27/18 09:53 Rocuronium [place] (Zemuron) Confirm Administered Dose 100 mg .ROUTE .STK-MED ONE Stop: 03/27/18 10:32 - Exam General: Reports: Alert, Oriented HEENT: Reports: Pupils Equal, Pupils Reactive, EOMI, Mucous Membr. Moist/[place]: Reports: Supple Lungs: Reports: Clear to Auscultation, Normal Respiratory Effort Cardiovascular: Reports: Regular Rate, Regular Rhythm GI/Abdominal Exam: Normal Bowel Sounds, Soft, Non-Tender, No Organomegaly, No Distention, No Abnormal Bruit, No Mass, Pelvis Stable (Female) Exam: Normal External Exam, Normal Speculum Exam, Normal Bimanual Exam Rectal (Female) Exam: Normal Exam, Normal Rectal Tone Back Exam: Reports: Normal Inspection, Full Range of Motion Extremities: Normal Inspection, Normal Range of Motion, Non-Tender, No Pedal Edema, Normal Capillary Refill Skin: Reports: Warm, Dry, Intact Wound/Incisions: Reports: Healing Well Neurological: Reports: No New Focal Deficit Psy/Mental Status: Reports: Alert, Normal Affect, Normal Mood
[2018-03-27] MEDS ORDERED: Meperidine PF 25 MG/ML Syringe IM ONE (11:13)
[2018-03-27] MEDS ORDERED: fentaNYL 100 MCG/2 ML SDV IVPUSH PRN (11:13)
[2018-03-27] MEDS ORDERED: HYDROmorphone 2 MG/ML SDV IVPUSH PRN (11:13)
--- NOTE | 2018-03-27 11:33 | PCM.POSTAN ---
POST ANESTHESIA ASSESSMENT - MENTAL STATUS Mental Status: Alert, Oriented - RESPIRATORY Respiratory Status: Respiratory Rate WNL, Airway Patent, O2 Saturation Stable - CARDIOVASCULAR CV Status: Pulse Rate WNL, Blood Pressure Stable - GASTROINTESTINAL GI Status: No Symptoms - PAIN Pain Score: 0 - POST OP HYDRATION Hydration Status: Adequate & Stable
--- NOTE | 2018-03-27 12:07 | OR ---
SURGEON: Modesto Tucker MD DATE OF PROCEDURE: PREOPERATIVE DIAGNOSIS: Lost intrauterine device. POSTOPERATIVE DIAGNOSIS: Lost intrauterine device. OPERATION PERFORMED: Multiple puncture diagnostic laparoscopy, location of the IUD, and removal of lost IUD from the abdomen. HOSE CEMENTER: OR tech. ANESTHESIA: General endotracheal intubation Dr. Stone. ESTIMATED BLOOD LOSS: 25 mL. COMPLICATIONS: None. FINDINGS: Lost IUD in the abdomen. INDICATION FOR SURGERY: This patient had an IUD inserted, she could not locate the strings and she came to the office for help. Ultrasound shows the IUD is not in the uterus, but is possibly in the abdomen. KUB confirmed the finding that the IUD is in the uterus. PROCEDURE IN DETAIL: The patient was brought to the OR, properly identified. After adequate level of general anesthesia, the patient placed in lithotomy position, prepped and draped in sterile fashion as usual. Viroblocklka manipulator placed in the uterus for manipulation. Straight catheter was used to empty the bladder. The Veress needle was placed in the peritoneal cavity beneath the umbilicus and the peritoneal cavity insufflated with 3.5 liter of carbon dioxide. Then, the skin incision large to accommodate 5 mm trocar. Then the patient was placed in steep Trendelenburg and two 5 mm trocars placed in the right and left iliac fossa under direct vision. I checked in the area where the IUD is lost and known by the KUB it was in the right lower quadrant of the abdomen and it is not visible and it is not seen. I looked at both of the gutters and I could not find the IUD. Rather than prolonging the procedures and you know with the help of the C- arm, the IUD was located, it was wrapped up with the omentum. The IUD was grabbed and freed from the omentum and grabbed by the strings and removed without any problem. Once done, inspection of the abdomen shows no oozing, no bleeding. The peritoneal cavity was closed in layers. Instrument and sponge count was correct. The patient tolerated the procedure well, went to recovery room in stable general condition. JUDITH / HAMZAH /[id number]
--- NOTE | 2018-03-27 12:10 | PCM48HPAN ---
Post Anesthesia Note - EVALUATION WITHIN 48HRS OF ANESTHETIC Vital Signs in Normal Range: Yes Patient Participated in Evaluation: Yes Respiratory Function Stable: Yes Airway Patent: Yes Cardiovascular Function Stable: Yes Hydration Status Stable: Yes Pain Control Satisfactory: Yes Nausea and Vomiting Control Satisfactory: Yes Mental Status Recovered: Yes Resp Rate: 44 - COMMENTS/OBSERVATIONS Free Text/Narrative:: no anesthesia problems
--- NOTE | 2018-03-27 16:02 | CR ---
Procedure all fluoroscopy Limited fluoroscopy was employed to anesthesiologist assistant certified removal of IUD. Impression: Limited fluoroscopy for IUD removal
== END 2018-03-27 12:15 | disposition home or self-care (01) ==
LOC: MW.SDS 07:32
PROVIDERS: ATTEND Obstetrics & Gynecology
DX: T83.32XA Displacement of intrauterine contraceptive device, initial encounter (principal)
CPT/HCPCS: 36415; 76000; 76000-26; 81025; 85027; 86850; 86900; 86901; A9270-GY; J1100; J1885; J2175; J2250; J2405; J2704; J3010; J3490; J7120

== ENCOUNTER 2023-07-10 23:20 | Inpatient (IN) | payer SELFPAY ==
[2023-07-10] MEDS ORDERED: Oxytocin/0.9 % Sodium Chloride 30 UNIT/500 ML BAG IV SCH (23:45)
[2023-07-10] MEDS ORDERED: Misoprostol 25 MCG (1/4 of 100 MCG) Tab VAG PRN ×2 (23:46)
[2023-07-10] MEDS ORDERED: Terbutaline 1 MG/ML SDV SUBCUT PRN (23:46)
[2023-07-10] MEDS ORDERED: Misoprostol 25 MCG (1/4 of 100 MCG) Tab PO PRN (23:54)
[2023-07-11] MEDS ORDERED: Tranexamic Acid IN NACL,ISO-OS 1,000 MG in Premix Bag 1 BAG IV PRN ×2
[2023-07-11] MEDS ORDERED: Lidocaine 1% 50 ML MDV INJECT PRN
[2023-07-11] MEDS ORDERED: Butorphanol 1 MG/ML SDV IVPUSH PRN
[2023-07-11] MEDS ORDERED: Carboprost Tromethamine 250 MCG/1 mL Vial IM PRN
[2023-07-11] MEDS ORDERED: Sodium Chloride 0.9% 2.5 ML Syringe FLUSH PRN
[2023-07-11] MEDS ORDERED: Sodium Chloride 0.9% 20 ML SDV IV PRN
[2023-07-11] MEDS ORDERED: Sodium Chloride 0.9% 10 ML Syringe FLUSH PRN
[2023-07-11] MEDS ORDERED: Water For Irrigation,Sterile 1,000 ML Container IRR PRN
[2023-07-11] MEDS ORDERED: Misoprostol 25 MCG (1/4 of 100 MCG) Tab VAG PRN ×2 (00:10)
[2023-07-11] MEDS ORDERED: Terbutaline 1 MG/ML SDV SUBCUT PRN (00:10)
[2023-07-11] MEDS ORDERED: Oxytocin/0.9 % Sodium Chloride 30 UNIT/500 ML BAG IV SCH ×3 (00:15→02:15)
[2023-07-11] MEDS ORDERED: Ondansetron 4 MG/2 ML SDV IVPUSH PRN ×2 (00:16)
[2023-07-11] MEDS ORDERED: Lactated Ringers 1,000 ML IV SCH ×2 (00:30)
[2023-07-11] MEDS ORDERED: Ampicillin 2 GM in Sodium Chloride 0.9% 100 ML IV ONE (00:30)
[2023-07-11] MEDS ORDERED: Carboprost Tromethamine 250 MCG/1 mL Vial IM ONE (01:43)
[2023-07-11] MEDS ORDERED: Methylergonovine 0.2 MG/1 ML Amp IM PRN ×2 (01:45)
[2023-07-11] MEDS ORDERED: Nalbuphine 10 MG/0.5 ML Syringe IVPUSH ONE (01:50)
[2023-07-11] MEDS ORDERED: Lidocaine 1% 20 ML MDV INJECT ONE (01:53)
[2023-07-11] MEDS ORDERED: Tranexamic Acid IN NACL,ISO-OS 1,000 MG in Premix Bag 1 BAG IV ONE ×2 (02:00)
[2023-07-11 03:44] LABS: HEMATOCRIT 33.6 % (36.0-46.0); HEMOGLOBIN 11.2 g/dL (12.0-16.0); MEAN CORPUSCULAR HEMOGLOBIN 28.9 pg (27.0-32.0); MEAN CORPUSCULAR HGB CONC 33.3 g/dL (31.0-37.0); MEAN CORPUSCULAR VOLUME 86.6 fL (80.0-98.0); MEAN PLATELET VOLUME 11.6 fL (7.40-12.00); RED BLOOD CELL COUNT 3.88 M/uL (4.30-5.90); WHITE BLOOD CELL COUNT,WBC 6.11 K/uL (4.0-11.0)
[2023-07-11] MEDS ORDERED: Ampicillin 1 GM in Sodium Chloride 0.9% 100 ML IV SCH (04:30)
[2023-07-11] MEDS ORDERED: Ampicillin 1 GM Vial ONE (04:56)
[2023-07-11] MEDS ORDERED: Ropivacaine/PF 400 MG/200 ML PCA ONE (05:23)
[2023-07-11] MEDS ORDERED: Bupivacaine 0.5% 10 ML SDV ONE (05:23)
[2023-07-11] MEDS ORDERED: Phenylephrine HCl 0.5 MG/5 ML AMP IVPUSH PRN (05:46)
[2023-07-11] MEDS ORDERED: ePHEDrine 50 MG/ML SDV IVPUSH PRN ×2 (05:46)
[2023-07-11] MEDS ORDERED: Ropivacaine HCl/PF 400 MG in Premix Bag 1 BAG EPIDUR SCH (06:00)
[2023-07-11] MEDS ORDERED: Ibuprofen 400 MG Tab PO PRN (06:31)
[2023-07-11] MEDS ORDERED: Bisacodyl 10 MG Supp RECTAL PRN (06:31)
[2023-07-11] MEDS ORDERED: Lanolin 100% Cream 7 GM Tube TOP PRN (06:31)
[2023-07-11] MEDS ORDERED: Benzocaine/Menthol 20%-0.5% Spray 78 GM Cannister TOP PRN (06:31)
[2023-07-11] MEDS ORDERED: Docusate Sodium 100 MG Cap PO PRN (06:31)
[2023-07-11] MEDS ORDERED: Witch Hazel Medicated Pads 40/Jar TOP PRN (06:31)
[2023-07-11] MEDS ORDERED: Acetaminophen 500 MG Tab PO PRN ×2 (06:31)
[2023-07-11] MEDS ORDERED: Oxytocin/0.9 % Sodium Chloride 30 UNIT/500 ML BAG IV STA (07:08)
[2023-07-11] MEDS: Ibuprofen 800 MG Tab PO PRN ×2 (10:43→20:22)
== END 2023-07-12 11:35 | disposition home or self-care (01) | DRG 807 ==
LOC: MW.OBCHECK 23:20 → MW.OB 23:21 → MW.OBCHECK 07-11 00:01 → OBSVTOIN 07-11 06:12 → MW.OB 07-11 13:17
PROVIDERS: ADMIT Obstetrics & Gynecology Obstetrics; ATTEND Obstetrics & Gynecology Obstetrics
PROC: 10E0XZZ Delivery of Products of Conception, External Approach (ICD-10-PCS; principal; 2023-07-11)
PROC: 3E0P7VZ Introduction of Hormone into Female Reproductive, Via Natural or Artificial Opening (ICD-10-PCS; 2023-07-11)
PROC: 3E0R3BZ Introduction of Anesthetic Agent into Spinal Canal, Percutaneous Approach (ICD-10-PCS; 2023-07-11)
PROC: 00HU33Z Insertion of Infusion Device into Spinal Canal, Percutaneous Approach (ICD-10-PCS; 2023-07-11)
DX: O99.824 Streptococcus B carrier state complicating childbirth (principal); Z37.0 Single live birth; Z3A.39 39 weeks gestation of pregnancy; O42.02 Full-term premature rupture of membranes, onset of labor within 24 hours of rupture
CPT/HCPCS: 36415; 59025; 59409; 85027; 86592; 86850; 86900; 86901; A9270-GY; J0290; J2210; J2405; J2590; J2795; J3490; J7120